=== PATIENT | female | born 1990 | race Caucasian/White ===

== ENCOUNTER 2021-05-17 02:32 | Emergency (ER) | payer MEDICAID, OTHER ==
[~2021-05-17] VITALS: Ht 157.5 cm; Wt 105.2 kg
[2021-05-17 06:47] LABS: INR 1.06 (0.9-1.15)
[2021-05-17 06:48] LABS: Basophils # (auto) 0.1 10 ^3/uL (0-0.2); Basophils % (auto) 0.6 % (0.0-2.0); Eosinophils # (auto) 0.1 10 ^3/uL (0-0.8); Eosinophils % (auto) 1.4 % (0.0-7.0); Hematocrit 30.7 % (36.0-46.0); Lymphocytes # (auto) 2.4 10 ^3/uL (0.4-5.4); Lymphocytes % (auto) 26.6 % (10.0-50.0); Mean Corpuscular Hemoglobin 26.8 pg (28.0-32.0); Mean Corpuscular Hgb Conc. 32.7 g/dL (32.0-36.0); Mean Corpuscular Volume 81.9 fL (80.0-100.0); Monocytes # (auto) 0.7 10 ^3/uL (0-1.3); Monocytes % (auto) 7.9 % (0.0-12.0); Neutrophils # (auto) 5.8 10 ^3/uL (1.6-8.6); Neutrophils % (auto) 63.5 % (37.0-80.0); Red Blood Cells 3.75 10^6/uL (4.0-5.20); Red Cell Distribution Width 17.1 % (11.8-14.3); White Blood Cell 9.2 10^3/uL (4.4-10.8)
[2021-05-17 06:56] LABS: Albumin 2.7 g/dL (3.4-5.0); Calcium 8.5 mg/dL (8.5-10.1); Potassium 3.5 mmol/L (3.5-5.1)
[2021-05-17 07:06] LABS: BUN/Creatinine Ratio 13.9; Bilirubin, Total 0.3 mg/dL (0.2-1.0); CRP High Sensitivity 6.84 mg/dL (< 0.3); Total Protein 7.1 g/dL (6.4-8.2)
[2021-05-17] MEDS ORDERED: SODIUM CHLORIDE 0.9% 500 ML IVB ONE (09:00)
[2021-05-17] MEDS ORDERED: SODIUM CHLORIDE 0.9% 1,000 ML IV ONE (09:00)
[2021-05-17] MEDS ORDERED: IOHEXOL 300 MG/ML 100ML BOTTLE IJ ONE (09:17)
[2021-05-17 10:02] LABS: Urine Bacteria NONE SEEN /hpf (None Seen); Urine Blood Negative /uL (Negative); Urine Mucus FEW (None Seen); Urine Specific Gravity 1.035 (1.001-1.035); Urine WBC 4 /hpf (0 - 5)
[2021-05-17] MEDS ORDERED: metroNIDAZOLE 500MG/100ML 100 ML IV ONE (12:00)
[2021-05-17] MEDS ORDERED: cefTRIAXone 1GM/50ML D5W 50 ML IV ONE (12:00)
[2021-05-17 14:58] VITALS: BP 117/74
== END 2021-05-17 13:51 | disposition home or self-care (01) ==
LOC: ER 02:32
DX: T81.43XA Infection following a procedure, organ and space surgical site, initial encounter (principal); Z48.815 Encounter for surgical aftercare following surgery on the digestive system; Z20.822 Contact with and (suspected) exposure to COVID-19
CPT/HCPCS: 36415; 71046; 74176; 74177; 80053; 81001; 83605; 83690; 84702; 85025; 85379; 85610; 85652; 86141; 87040; 87426; 96361; 96365; 96368; 99285; J0696; J3490; J7030; J7040; Q9967

== ENCOUNTER 2023-07-15 15:22 | Observation (INO) | payer MEDICAID ==
[2023-07-15 17:21] LABS: Basophils # (auto) 0 10 ^3/uL (0-0.2); Basophils % (auto) 0.3 % (0.0-2.0); Eosinophils # (auto) 0.1 10 ^3/uL (0-0.8); Eosinophils % (auto) 0.8 % (0.0-7.0); Hematocrit 27.2 % (36.0-46.0); Hemoglobin 8.9 g/dL (12.2-16.2); Lymphocytes # (auto) 1.6 10 ^3/uL (0.4-5.4); Lymphocytes % (auto) 13.1 % (10.0-50.0); Mean Corpuscular Hemoglobin 26.4 pg (28.0-32.0); Mean Corpuscular Hgb Conc. 32.7 g/dL (32.0-36.0); Mean Corpuscular Volume 80.6 fL (80.0-100.0); Monocytes # (auto) 0.5 10 ^3/uL (0-1.3); Monocytes % (auto) 4.4 % (0.0-12.0); Neutrophils % (auto) 81.4 % (37.0-80.0); Red Blood Cells 3.38 10^6/uL (4.0-5.20); Red Cell Distribution Width 17.3 % (11.8-14.3); White Blood Cell 12.2 10^3/uL (4.4-10.8)
[2023-07-15 17:40] LABS: Partial Thromboplastin Time 27.6 SEC (24.5-34.5); Prothrombin Time 10.5 sec (9.3-11.8)
[2023-07-15 17:41] LABS: Albumin 3.4 g/dL (3.2-4.8); Alkaline Phosphatase 111 U/L (46-116); Anion Gap 7 (5-15); Aspartate Aminotransferase < 8 U/L (13-40); BUN/Creatinine Ratio 8.2 (10.0-20.0); Bilirubin, Total 0.4 mg/dL (0.2-1.0); Blood Urea Nitrogen 6 mg/dL (9-23); Calcium 8.3 mg/dL (8.7-10.4); Carbon Dioxide 19 mmol/L (20-30); Chloride 110 mmol/L (98-107); Glucose 85 mg/dL (74-106); Potassium 3.4 mmol/L (3.5-5.1); Sodium 136 mmol/L (136-145); Total Protein 5.8 g/dL (5.7-8.2); Uric Acid 4.4 mg/dL (3.1-7.8)
[2023-07-15] MEDS ORDERED: ASPI-543 PO (18:02)
[2023-07-15 18:21] LABS: Alanine Aminotransferase < 9 U/L (7-40)
[2023-07-15 18:32] LABS: Protein, Urine 7.3 mg/dL (0.0-11.9)
[2023-07-15 18:34] LABS: Amphetamine Screen, Urine Neg (NEGATIVE); Benzodiazephine Screen, Urine Neg (NEGATIVE); Cocaine Screen, Urine Neg (NEGATIVE); Opiate Scree,Urine Neg (NEGATIVE)
[2023-07-15 18:35] LABS: Cannabinoid Screen, Urine Neg (NEGATIVE); Creatinine, Urine 49.89 mg/dL (30.0-125.0); Phencyclidine Screen, Urine Neg (NEGATIVE)
[2023-07-15 18:50] LABS: Barbiturate Scree,Urine Neg (NEGATIVE)
== END 2023-07-15 18:17 | disposition home or self-care (01) ==
LOC: LDRP 15:22 → UNDOADMOB 15:22 → LDRP 15:26 → UNDODISOB 18:17
PROVIDERS: ADMIT Obstetrics & Gynecology; ATTEND Obstetrics & Gynecology
DX: O13.3 Gestational [pregnancy-induced] hypertension without significant proteinuria, third trimester (principal); O99.213 Obesity complicating pregnancy, third trimester; E66.01 Morbid (severe) obesity due to excess calories; Z3A.32 32 weeks gestation of pregnancy; Z79.899 Other long term (current) drug therapy
CPT/HCPCS: 36415; 59025; 76818; 80053; 80307; 81002; 82570; 84156; 84550; 85025; 85610; 85730; 94760; G0378

== ENCOUNTER 2023-07-22 16:02 | Observation (INO) | payer MEDICAID ==
[~2023-07-22 16:02] MED LIST: ASPI-543 PO
[2023-07-22] MEDS ORDERED: PREN-96 PO (17:34)
== END 2023-07-22 18:36 | disposition home or self-care (01) ==
LOC: LDRP 16:02 → UNDOADMOB 16:02 → LDRP 16:31 → UNDODISOB 18:36
PROVIDERS: ADMIT Obstetrics & Gynecology; ATTEND Obstetrics & Gynecology
DX: O13.3 Gestational [pregnancy-induced] hypertension without significant proteinuria, third trimester (principal); O99.333 Smoking (tobacco) complicating pregnancy, third trimester; F17.200 Nicotine dependence, unspecified, uncomplicated; Z3A.33 33 weeks gestation of pregnancy
CPT/HCPCS: 59025; 76818; 81002; 94760; G0378

== ENCOUNTER 2023-08-25 15:13 | Inpatient (IN) | payer MEDICAID ==
[~2023-08-25] VITALS: Ht 162.6 cm; Wt 131.1 kg
[~2023-08-25 15:13] MED LIST changes: +PREN-96 PO
[2023-08-25 16:47] LABS: Basophils # (auto) 0 10 ^3/uL (0-0.2); Eosinophils # (auto) 0.1 10 ^3/uL (0-0.8); Lymphocytes # (auto) 1.7 10 ^3/uL (0.4-5.4); Monocytes # (auto) 0.5 10 ^3/uL (0-1.3); Monocytes % (auto) 4.1 % (0.0-12.0); Neutrophils # (auto) 11.1 10 ^3/uL (1.6-8.6); White Blood Cell 13.5 10^3/uL (4.4-10.8)
[2023-08-25 16:48] LABS: Basophils % (auto) 0.2 % (0.0-2.0); Eosinophils % (auto) 0.7 % (0.0-7.0); Hematocrit 30.3 % (36.0-46.0); Hemoglobin 9.8 g/dL (12.2-16.2); Lymphocytes % (auto) 12.9 % (10.0-50.0); Mean Corpuscular Hemoglobin 24.7 pg (28.0-32.0); Mean Corpuscular Hgb Conc. 32.2 g/dL (32.0-36.0); Mean Corpuscular Volume 76.6 fL (80.0-100.0); Neutrophils % (auto) 82.1 % (37.0-80.0); Red Blood Cells 3.96 10^6/uL (4.0-5.20); Red Cell Distribution Width 18.1 % (11.8-14.3)
[2023-08-25 17:04] LABS: Alanine Aminotransferase 17 U/L (7-40); Albumin 3.7 g/dL (3.2-4.8); Alkaline Phosphatase 178 U/L (46-116); Anion Gap 12 (5-15); Aspartate Aminotransferase 17 U/L (13-40); BUN/Creatinine Ratio 13.2 (10.0-20.0); Blood Urea Nitrogen 9 mg/dL (9-23); Carbon Dioxide 16 mmol/L (20-30); Chloride 109 mmol/L (98-107); Glucose 77 mg/dL (74-106); Potassium 3.7 mmol/L (3.5-5.1); Sodium 137 mmol/L (136-145)
[2023-08-25 17:05] LABS: Bilirubin, Total 0.4 mg/dL (0.2-1.0); Total Protein 6.3 g/dL (5.7-8.2)
[2023-08-25 17:12] LABS: INR 0.94 (0.9-1.15); Partial Thromboplastin Time 26.7 SEC (24.5-34.5); Prothrombin Time 9.9 sec (9.3-11.8)
[2023-08-26] VITALS (18 sets, daily range): BP systolic 105–133; BP diastolic 50–86; PULSE 65–100; RESP 18–20; TEMP 97.6–98; O2SAT 94–99
[2023-08-26] MEDS ORDERED: LACTATED RINGER'S 1,000 ML IV SCH (04:45)
[2023-08-26] MEDS: LACTATED RINGER'S 1,000 ML IV ONE (05:21)
[2023-08-26] MEDS ORDERED: KETOROLAC TROMETH 30 MG/ML 1ML VIAL ONE (07:08)
[2023-08-26] MEDS ORDERED: oxyTOCIN 10 UNIT/ML 10ML VIAL ONE (07:08)
[2023-08-26] MEDS ORDERED: ONDANSETRON HCL 4 MG/2 ML VIAL ONE (07:08)
[2023-08-26] MEDS ORDERED: DexAMETHasone SOD PHOS 10MG/1ML VIAL INJ ONE (07:08)
[2023-08-26] MEDS ORDERED: MORPHINE SULF PF 5 MG/10 ML VIAL ONE (07:09)
[2023-08-26] MEDS ORDERED: fentaNYL CITRATE 100 MCG/2 ML VL ONE (07:09)
[2023-08-26] MEDS ORDERED: SODIUM CHLORIDE LOCK 10 ML ONE ×2 (07:13→07:14)
[2023-08-26] MEDS ORDERED: PHENYLEPHRINE HCL 10 MG/ML VL ONE (07:13)
[2023-08-26] MEDS: ceFAZolin 2 GM/D5W50ml 50 ML IV ONE (07:32)
[2023-08-26] MEDS ORDERED: ceFAZolin 1GM VL ONE (07:37)
[2023-08-26] MEDS ORDERED: diphenhdrAMINE HCL 50 MG/1 ML VL ONE (08:03)
[2023-08-26] MEDS ORDERED: ONDANSETRON HCL 4 MG/2 ML VIAL IV PRN (09:00)
[2023-08-26] MEDS ORDERED: NALBUPHINE HCL 10 MG/1ml INJECTION IV ONE (09:00)
[2023-08-26] MEDS ORDERED: NALOXONE HCL 0.4 MG/ML VIAL IV PRN (09:00)
[2023-08-26] MEDS ORDERED: HYDROmorphone HCL 2 MG/ML VL/or syr IV PRN (09:00)
[2023-08-26] MEDS ORDERED: ACETAMINOPHEN IV 1000 MG/100ML (10MG/ML) IV PRN (10:30)
[2023-08-26 11:16] LABS: Urine Bacteria None Seen /hpf (None Seen)
[2023-08-26 11:48] LABS: Amphetamine Screen, Urine Neg (NEGATIVE)
[2023-08-26 11:51] LABS: Barbiturate Scree,Urine Neg (NEGATIVE); Benzodiazephine Screen, Urine Neg (NEGATIVE); Cannabinoid Screen, Urine Neg (NEGATIVE); Cocaine Screen, Urine Neg (NEGATIVE); Opiate Scree,Urine Neg (NEGATIVE); Phencyclidine Screen, Urine Neg (NEGATIVE)
[2023-08-26 11:59] LABS: Urine Blood 1+ /uL (Negative); Urine Clarity Clear (Clear); Urine Color Yellow (Yellow); Urine Mucus FEW (None Seen); Urine Protein, UAD 1+ (Negative); Urine Specific Gravity 1.048 (1.001-1.035); Urine Urobilinogen Normal (Negative); Urine WBC 3 /hpf (0 - 5); Urine pH 6.5 (5.0-9.0)
[2023-08-26] MEDS: LACTATED RINGER'S 1,000 ML IV SCH (12:14)
[2023-08-26] MEDS: ENOXAPARIN SOD 40 MG/0.4 ML SYRINGE SC ONE (14:38)
[2023-08-26] MEDS: ceFAZolin 1GM/50ML 50 ML IV SCH (16:07)
[2023-08-26 18:30] LABS: Basophils # (auto) 0 10 ^3/uL (0-0.2); Basophils % (auto) 0.1 % (0.0-2.0); Eosinophils # (auto) 0 10 ^3/uL (0-0.8); Hematocrit 28.7 % (36.0-46.0); Lymphocytes # (auto) 0.9 10 ^3/uL (0.4-5.4); Lymphocytes % (auto) 4.8 % (10.0-50.0); Mean Corpuscular Hgb Conc. 31.4 g/dL (32.0-36.0); Mean Corpuscular Volume 76.5 fL (80.0-100.0); Monocytes # (auto) 0.2 10 ^3/uL (0-1.3); Monocytes % (auto) 1.2 % (0.0-12.0); Neutrophils # (auto) 17.7 10 ^3/uL (1.6-8.6); Neutrophils % (auto) 93.9 % (37.0-80.0); Red Blood Cells 3.75 10^6/uL (4.0-5.20); Red Cell Distribution Width 17.8 % (11.8-14.3); White Blood Cell 18.8 10^3/uL (4.4-10.8)
[2023-08-26] MEDS: KETOROLAC TROMETH 30 MG/ML 1ML VIAL IV PRN (19:19)
[2023-08-26] MEDS ORDERED: PHISODERM TOP SOLN 240ML BTL TOP PRN (22:15)
[2023-08-27] VITALS (11 sets, daily range): BP systolic 102–146; BP diastolic 64–79; PULSE 68–88; RESP 15–18; TEMP 97.8–98.6; O2SAT 96–99
[2023-08-27] MEDS: diphenhdrAMINE HCL 50 MG/1 ML VL IV PRN (00:20)
[2023-08-27 07:58] LABS: Eosinophils # (auto) 0.1 10 ^3/uL (0-0.8); Hemoglobin 7.9 g/dL (12.2-16.2); Lymphocytes # (auto) 2.3 10 ^3/uL (0.4-5.4)
[2023-08-27 08:00] LABS: Basophils # (auto) 0.1 10 ^3/uL (0-0.2); Basophils % (auto) 0.4 % (0.0-2.0); Eosinophils % (auto) 0.4 % (0.0-7.0); Lymphocytes % (auto) 16.6 % (10.0-50.0); Mean Corpuscular Hemoglobin 24.4 pg (28.0-32.0); Mean Corpuscular Hgb Conc. 31.5 g/dL (32.0-36.0); Mean Corpuscular Volume 77.3 fL (80.0-100.0); Monocytes # (auto) 0.7 10 ^3/uL (0-1.3); Monocytes % (auto) 5.2 % (0.0-12.0); Neutrophils # (auto) 10.9 10 ^3/uL (1.6-8.6); Neutrophils % (auto) 77.4 % (37.0-80.0); Red Blood Cells 3.24 10^6/uL (4.0-5.20); Red Cell Distribution Width 17.7 % (11.8-14.3); White Blood Cell 14.1 10^3/uL (4.4-10.8)
[2023-08-27 08:06] LABS: RPR Non Reactive (Non Reactive)
[2023-08-27] MEDS: DOCUSATE SOD 100 MG CAP PO SCH (09:46)
[2023-08-27] MEDS: HYDROcodone-ACET 5/325MG TAB PO PRN ×2 (09:47→20:49)
[2023-08-27] MEDS ORDERED: ENOXAPARIN SOD 30 MG/0.3 ML SYRINGE SC SCH (10:00)
[2023-08-27] MEDS: ENOXAPARIN SOD 40 MG/0.4 ML SYRINGE SC SCH (10:28)
[2023-08-27] MEDS: SIMETHICONE 80 MG CHEWABLE TABLET PO SCH (14:40)
[2023-08-27] MEDS: IBUPROFEN 800 MG TAB PO PRN (14:41)
[2023-08-27] MEDS: ceFAZolin 1GM/50ML 50 ML IV ONE (16:16)
[2023-08-27 17:54] LABS: INR 0.93 (0.9-1.15); Partial Thromboplastin Time 27.7 SEC (24.5-34.5); Prothrombin Time 9.8 sec (9.3-11.8)
[2023-08-27 17:57] LABS: Alanine Aminotransferase 16 U/L (7-40); Albumin 3.2 g/dL (3.2-4.8); Alkaline Phosphatase 132 U/L (46-116); Anion Gap 5 (5-15); Aspartate Aminotransferase 12 U/L (13-40); BUN/Creatinine Ratio 18.6 (10.0-20.0); Bilirubin, Total 0.3 mg/dL (0.2-1.0); Blood Urea Nitrogen 16 mg/dL (9-23); Calcium 8.4 mg/dL (8.7-10.4); Carbon Dioxide 21 mmol/L (20-30); Chloride 112 mmol/L (98-107); Glucose 83 mg/dL (74-106); Potassium 4.1 mmol/L (3.5-5.1); Sodium 138 mmol/L (136-145); Total Protein 5.5 g/dL (5.7-8.2); Uric Acid 5.6 mg/dL (3.1-7.8)
[2023-08-27 22:45] LABS: Protein, Urine 15.1 mg/dL (0.0-11.9)
[2023-08-27 22:48] LABS: Creatinine, Urine 65.3 mg/dL (30.0-125.0); Urine Protein/Creatinine Ratio 0.23
[2023-08-27] MEDS ORDERED: IBUP-1455 PO (23:25)
[2023-08-27] MEDS ORDERED: DOCU-265 PO (23:25)
[2023-08-27] MEDS ORDERED: FER325T PO (23:25)
[2023-08-27] MEDS ORDERED: HYDR-4902 PO (23:25)
[2023-08-27] MEDS ORDERED: PREN-96 PO (23:25)
[2023-08-27] MEDS ORDERED: ASCO500T11 PO (23:25)
[2023-08-28 03:00] VITALS: BP 132/84; PULSE 84; RESP 20; TEMP 98; O2SAT 97
[2023-08-28 07:00] VITALS: BP 136/79; PULSE 79; RESP 18; RESP 20; TEMP 97.9; O2SAT 97; O2SAT 98
[2023-08-28] MEDS: IRON SUCROSE COMPLEX 100 ML IV ONE (08:18)
[2023-08-28 11:00] VITALS: BP_SYST 136; BP_SYST 147; BP_DIAS 77; BP_DIAS 79; PULSE 77; PULSE 79; RESP 18; TEMP 97.9; TEMP 98; O2SAT 97
[2023-08-28 19:06] LABS: Treponema pallidum Ab (FTA-Ab) Non Reactive (Non Reactive)
== END 2023-08-28 14:07 | disposition home or self-care (01) | DRG 540 ==
LOC: LDRP 08-26 04:36 → UNDOADMIN 08-26 04:36 → LDRP 08-26 04:46
PROVIDERS: ADMIT Obstetrics & Gynecology; ATTEND Obstetrics & Gynecology
PROC: 10D00Z1 Extraction of Products of Conception, Low, Open Approach (ICD-10-PCS; principal; 2023-08-26 07:36)
DX: O99.013 Anemia complicating pregnancy, third trimester (principal); R71.0 Precipitous drop in hematocrit; O34.211 Maternal care for low transverse scar from previous cesarean delivery; Z37.0 Single live birth; Z3A.38 38 weeks gestation of pregnancy; Z86.32 Personal history of gestational diabetes; Z86.79 Personal history of other diseases of the circulatory system
CPT/HCPCS: 36415; 59025; 80053; 80307; 81001; 82570; 84156; 84550; 85025; 85610; 85730; 86592; 86850; 86900; 86901; 94760; 94762; 96360; 96361; 96365; 96366; 96372; 96374; 96375; G0378; J0690; J1100; J1756; J1885; J2405; J2590